=== PATIENT | male | born 1975 | race Two or more races ===

== ENCOUNTER 2019-09-13 01:42 | Emergency (ER) | payer MEDICARE, OTHER ==
[~2019-09-13] VITALS: Ht 172.7 cm; Wt 68.5 kg
[2019-09-13] MEDS ORDERED: OLANZAPINE 5 MG TABLET PO ONE (02:00)
[2019-09-13] MEDS ORDERED: OLANZAPINE 5 MG TABLET ONE (02:01)
--- NOTE | 2019-09-13 02:06 | NUR ---
URINE COLLECTED AND SENT TO LAB
--- NOTE | 2019-09-13 02:10 | NUR ---
PATIENT'S CLOTH IS REMOVED AND PLACED INTO A CLEAN GOWN.
--- NOTE | 2019-09-13 02:12 | NUR ---
BIBS. TO ER BED 14. AAOX4. NOT IN RESP DISTRESS. AMBUALTORY. CAME IN FOR SUICIDAL IDEATION W/ PLAN TO JUMP OFF A BRIDGE AND AUDITORY HALLUCINATIONS. PT STATES THAT THE VOICES ARE TELLIN HIM THAT HE IS NOT WORTHY TO LIVE AND KILL HIMSELF. DENIES HI. PT IS STRIPPED OFF CLOTHING AND BELONGINGS KEPT IN LOCKER LOCATED IN UTILITY ROOM. MD WAS AT BEDSIDE FOR EVAL. ORDERS RECEIVED, NOTED AND CARRIED. URINE COLLECTED. MEDICATED ORDERED. 1:1 SITTER AT BEDSIDE.
[2019-09-13 02:29] LABS: APPEARANCE,URINE CLEAR (CLEAR); BILIRUBIN,URINE NEGATIVE (NEGATIVE); BLOOD, URINE NEGATIVE Ery/uL (NEGATIVE); COLOR,URINE YELLOW (YELLOW); KETONES,URINE NEGATIVE (NEGATIVE); LEUKOCYTE ESTERASE ,URINE NEGATIVE (NEGATIVE); NITRITE, URINE NEGATIVE (NEGATIVE); PH,URINE 7.5 (5.0-8.0); PROTEIN,URINE NEGATIVE (NEGATIVE); UGLUCOSE NEGATIVE (NEGATIVE)
[2019-09-13 02:32] LABS: BASOPHILS % (AUTO) 1.1 % (0.0-2.0); EOSINOPHILS % (AUTO) 2.4 % (0.0-6.0); HEMATOCRIT 37 % (39-51); HEMOGLOBIN 12.1 g/dL (13.5-17.5); LYMPHOCYTES # (AUTO) 1.1 /CMM (0.8-4.8); LYMPHOCYTES % (AUTO) 37.6 % (20.0-44.0); MEAN CORPUSCULAR HGB CONC 33 g/dl (31.0-36.0); MEAN CORPUSCULAR VOLUME 85 fL (80-96); MONOCYTES # (AUTO) 0.2 /CMM (0.1-1.30); MONOCYTES % (AUTO) 7.5 % (2.0-12.0); NEUTROPHILS # (AUTO) 1.5 /CMM (1.8-8.9); NEUTROPHILS % (AUTO) 51.4 % (43.0-81.0); PLATELET COUNT (AUTO) 117 /CMM (150-450); RED BLOOD CELL COUNT(AUTO) 4.37 MIL/uL (4.5-6.0); WHITE BLOOD COUNT (AUTO) 2.9 K/uL (4.3-11.0)
[2019-09-13 02:34] LABS: BACTERIA,URINE Rare /HPF (None Seen); SQUAMOUS EPITHELIAL CELL,UR Rare /HPF (None Seen); WBC,URINE 0-2 /HPF (0-3)
[2019-09-13 02:36] LABS: CALCIUM, SERUM 8.4 mg/dL (8.5-10.1); CARBON DIOXIDE 27 mmol/L (21-32); CHLORIDE 103 mmol/L (98-107); CREATININE 0.9 mg/dL (0.6-1.3); GLUCOSE 88 mg/dL (74-106); POTASSIUM 3.7 mmol/L (3.5-5.1); SODIUM SERUM 139 mmol/L (136-145); UREA NITROGEN, BLOOD 11 mg/dL (7-18)
[2019-09-13 02:42] LABS: ALANINE AMINOTRANSFERASE 47 U/L (12-78); ALBUMIN 2.9 g/dL (3.4-5.0); ALCOHOL, BLOOD < 3 mg/dL (0-0); ALKALINE PHOSPHATASE 85 U/L (46-116); ASPARTATE AMINOTRANSFERASE 49 U/L (15-37); BILIRUBIN,DIRECT 0.2 mg/dL (0.0-0.2); BILIRUBIN,TOTAL 0.3 mg/dL (0.2-1.0); TOTAL PROTEIN, SERUM 8.5 g/dL (6.4-8.2)
[2019-09-13 02:43] LABS: ACETAMINOPHEN 0 ug/ml (10-30); SALICYLATE 2.4 mg/dL (2.8-20.0)
--- NOTE | 2019-09-13 04:08 | NUR ---
PATIENT IS ASLEEP. EASILY AROUSABLE THROUGH TOUCH AND VERBAL STIMULI. BREATHING EVENLY AND UNLABORED ON ROOM AIR. CONNECTED TO MONITOR. SITTER SITTING AT BEDSIDE.
--- NOTE | 2019-09-13 05:20 | NUR ---
PATIENT AMBULATED TO RESTROOM WITH A STEADY GAIT.
--- NOTE | 2019-09-13 05:27 | NUR ---
CALLED SRINIVASAN [facility] FOR PSYCH EVAL.
--- NOTE | 2019-09-13 06:19 | NUR ---
SEEN AND EXAMINED BY ART CORRECTIONS SPECIALIST.
--- NOTE | 2019-09-13 07:20 | NUR ---
REPORT GIVEN TO NISHA GREGG FOR KRISS.
--- NOTE | 2019-09-13 07:33 | NUR ---
Patient discharged to home in stable condition. Written and verbal after care instructions given. Patient verbalizes understanding of instruction.
[2019-09-13 07:53] VITALS: BP 116/71
== END 2019-09-13 07:45 | disposition home or self-care (01) ==
LOC: ER 01:42
DX: R45.851 Suicidal ideations (principal); Z88.1 Allergy status to other antibiotic agents
CPT/HCPCS: 36415; 80048; 80076; 80305; 80307; 80329; 81001; 85025; 99285; G0480; 81000-TC